=== PATIENT | female | born 1995 | race Caucasian/White ===

== ENCOUNTER 2018-07-22 16:48 | Outpatient (CLI) | END 2018-07-22 18:13 | disposition home or self-care (01) ==

== ENCOUNTER 2018-07-24 08:27 | Outpatient (CLI) | END 2018-07-24 10:32 | disposition home or self-care (01) ==

== ENCOUNTER 2018-07-28 09:49 | Outpatient (CLI) | END 2018-07-28 11:32 | disposition home or self-care (01) ==

== ENCOUNTER 2018-08-10 09:34 | Inpatient (IN) | payer OTHER ==
[~2018-08-10] VITALS: Ht 152.4 cm; Wt 77.5 kg
[~2018-08-10 09:34] MED LIST: ALBU8.5H8 INH; PREN-93 PO
[2018-08-10 09:45] VITALS: Ht 152.4 cm; Wt 77.5 kg
--- NOTE | 2018-08-10 09:46 | TRIAGE ---
OB Triage Datetime Report Generated by CPN: 08/10/2018 09:45 Datetime: 08/10/2018 09:35 Assessment Type: Triage Maternal Assessment Level of Consciousness: Fully Conscious DTR's/Clonus: DTRs 2+; No Clonus Headache: Denies Blurred Vision: No Respiratory Effort: Unlabored; Regular Rhythm; Equal Expansion Breath Sounds, Left: Clear and Equal Breath Sounds, Right: Clear and Equal Nausea/Vomiting: Denies RUQ Epigastric Pain: Denies Lower Extremities Edema: None Degree: None Upper Extremities Edema: None Degree: None Facial Edema: None Fall Risk Assessment History of Falling: (0) No Secondary Diagnosis: (0) No Ambulatory Aid: (0) Bedrest/Nurse Assist IV Therapy: (0) No Gait: (0) Normal/Bedrest/Immobile Mental Status: (0) Oriented to Own Ability Fall Score: 0 Fall Risk Score Definition: No Risk: No action required Datetime: 08/10/2018 09:31 Time of Arrival: 08/10/2018 09:31 EGA: 40.0 Arrived By: Wheelchair Arrived From: Home Chief Complaint: R/O LABOR Movement: Present Contractions: Regular Time Contractions Began: 08/10/2018 05:00 Contractions: 5-10 Rupture of Membranes: Denies Vaginal Discharge: Denies Recent Sexual Intercouse: Denies Abdominal Trauma: Not Applicable Additional Patient Complaints: NONE Time Provider Notified: 08/10/2018 09:41 Provider Notified: DEWAYNE Initial Plan: MONITOR AND VE Datetime: 07/28/2018 11:24 Stage of : OB Triage Maternal Assessment Level of Consciousness: Fully Conscious Labor Evaluation Frequency: 2UC Monitor Mode: External Duration (sec)2399: 80-100 Quality: Mild Resting Tone [place]: Relaxed Heart Rate FHR Baseline Rate: 135 Monitor Mode: External US Variability: Moderate 6-25 bpm Accelerations: 15X15 Decelerations: None Category: Category I Pain Assessment Pain Scale: 0 Pain Goal: 3 Vaginal Exam Membrane Status: Intact Vaginal Bleeding: None Datetime: 07/28/2018 10:55 EGA: 38.1 Fall Score: 0 Fall Risk Score Definition: No Risk: No action required Datetime: 07/24/2018 08:33 Fall Score: 0 Fall Risk Score Definition: No Risk: No action required Datetime: 07/24/2018 08:31 EGA: 37.4 Datetime: 07/22/2018 17:09 Fall Score: 0 Fall Risk Score Definition: No Risk: No action required Datetime: 07/22/2018 17:08 EGA: 37.2
[2018-08-10] MEDS ORDERED: OXYTOCIN 30 UNITS/LR 500 ML IV SCH ×3 (11:00→13:00)
--- NOTE | 2018-08-10 11:27 | HP ---
Date/Time of Note Date/Time of Note DATE: 08/10/18 TIME: 11:25 OB - History Hx of Present Free Text/Dictation @40+wks GA : 1 Para: 0 Care: Good Care Ultrasounds: Normal mid trimester US Obstetrical Complications: None Past Family/Social History * Past Medical, Surgical, Family and Obstetric Histories reviewed from chart. OB Admission Exam Physical Exam Abdomen: WNL Cervical Dilatation: 3cm Effacement: 75% Station: -1 Heart Rate: 140's Accelerations: Accelerations Present Decelerations: No Decelerations Varibility: Moderate Contractions on Admission: 6-10 Minutes Apart OB Assessment/Plan Reason for admission: observation Other Assessment: PMH Denies PSH Denies Allergy NKDA Plan: Expectant Management HARSHA BUCHANAN M.D. Aug 10, 2018 11:27
[2018-08-10] MEDS: LACTATED RINGER'S 1,000 ML IV SCH ×2 (12:51→20:58)
[2018-08-10] MEDS ORDERED: MISOPROSTOL 200 MCG TAB PR PRN (13:00)
[2018-08-10] MEDS ORDERED: METHYLERGONOVINE 0.2 MG INJ IM PRN (13:00)
[2018-08-10] MEDS ORDERED: CARBOPROST 250 MCG INJ IM PRN (13:00)
[2018-08-10] MEDS ORDERED: OXYTOCIN 30 UNITS/LR 500 ML IV PRN (13:00)
[2018-08-10] MEDS ORDERED: BUTORPHANOL 2 MG INJ IV PRN (13:00)
[2018-08-10] MEDS ORDERED: LIDOCAINE 1% (MPF) 30 ML INJ INJ PRN (13:00)
[2018-08-10] MEDS ORDERED: FENTAnyl 2MCG/ML-ROPIV 0.2% 100 ML ONE (13:01)
--- NOTE | 2018-08-10 13:08 | PREAC ---
Date/Time of Note Date/Time of Note DATE: 08/10/18 TIME: 13:07 Anesthesia Eval and Record Evaluation Time Pre-Procedure Interview DATE: 08/10/18 TIME: 13:07 Age 23 Sex female NPO: 8 hrs Preoperative diagnosis Labor Pain Planned procedure Labor Epidural Past Medical History Past Medical History: Includes : : (1), Para: (0), Gestational age: (40) Surgery & Anesthesia Issues No known issue Meds Anticoagulation: No Beta Jael within 24 hr: No Reason Beta Jael not given: Pt. not on B-Jael Reported Medications Albuterol Sulfate* (Proair HFA*) 8.5 Gm Hfa.aer.ad, 2 PUFF INH Q4 PRN for SHORTNESS OF BREATH, #1 INHALER 07/28/18 Vit No.124/Iron/FA ( Vitamin Tablet) 1 Each Tablet, 1 EACH PO DAILY, TAB 07/22/18 Current Medications Oxytocin/Lactated Ringer's 500 ml @ 0 mls/hr FOR AUGMENTATION IV ; Start 08/10/18 at 11:00 Lactated Ringer's 1,000 ml @ 125 mls/hr Q8H IV Last administered on 08/10/18at 12:51; Admin Dose 125 MLS/HR; Start 08/10/18 at 12:45 Butorphanol Tartrate (Stadol) 2 mg Q2H PRN IV PAIN; Start 08/10/18 at 13:00 Lidocaine (Xylocaine 1% (Mpf)) 30 ml ONCE PRN INJ EPISIOTOMY; Start 08/10/18 at 13:00 Oxytocin/Lactated Ringer's 500 ml @ 500 mls/hr ONCE POST IV ; Start 08/10/18 at 13:00 Oxytocin/Lactated Ringer's 500 ml @ 125 mls/hr POST IV ; Start 08/10/18 at 13:00 Oxytocin/Lactated Ringer's 500 ml @ 0 mls/hr ONCE PRN IV VAGINAL BLEEDING; Start 08/10/18 at 13:00 Methylergonovine Maleate (Methergine) 0.2 mg ONCE PRN IM VAGINAL BLEEDING; St art 08/10/18 at 13:00 Carboprost Tromethamine (Hemabate) 250 mcg ONCE PRN IM VAGINAL BLEEDING; Start 08/10/18 at 13:00 Misoprostol (Cytotec) 1,000 mcg ONCE PRN ND VAGINAL BLEEDING; Start 08/10/18 at 13:00 Meds reviewed: Yes Allergies Coded Allergies: No Known Allergy (Unverified , 08/10/18) Allergies Reviewed: Yes Labs/Studies Labs Reviewed: Reviewed by anesthesiologist test: Positive Studies: ECG (n/a), CXR (n/a) Pre-procedure Exam Airway: Adequate mouth opening, Adequate thyromental dist Mallampati: Mallampati II Teeth: Normal Lung: Normal Heart: Normal ASA Physical Status ASA physical status: 2 Emergency: None Planned Anesthetic Neuraxial: Epidural Planned Pain Management Epidural Pre-operative Attestations Prior to commencing anesthesia and surgery, the patient was re-evaluated, there was verification of: *The patient's identity *The results of appropriate recent lab work and preoperative vital signs *The above evaluation not changing prior to induction *Anesthetic plan, risk benefits, alternative and complications discussed with patient/family; questions answered; patient/family understands, accepts and wishes to proceed. MARTHA CHRISTIAN MD Aug 10, 2018 13:08
--- NOTE | 2018-08-10 13:10 | PAC ---
Date/Time of Note Date/Time of Note DATE: 08/10/18 TIME: 13:10 Post-Anesthesia Notes Post-Anesthesia Note Last documented vital signs T: 98.1 Activity: WNL Respiratory function: WNL Cardiovascular function: WNL Mental status: Baseline Pain reasonably controlled: Yes Hydration appropriate: Yes Nausea/Vomiting absent: Yes MARTHA CHRISTIAN MD Aug 10, 2018 13:10
[2018-08-10] MEDS ORDERED: NALOXONE (0.4 MG/ML) INJ IV PRN (13:30)
[2018-08-10] MEDS ORDERED: ALBUTEROL HFA 8 GM INHALER INH PRN (13:30)
[2018-08-10] MEDS: FENTAnyl 2MCG/ML-ROPIV 0.2% 100 ML BAG EPI SCH ×2 (20:46→20:47)
[2018-08-11] MEDS ORDERED: MINERAL OIL LIGHT 10 ML VIAL TOP STA (02:27)
--- NOTE | 2018-08-11 03:14 | LDN ---
Date/Time of Note Date/Time of Note DATE: 08/11/18 TIME: 03:11 Delivery Summary from OA from OP Weeks of Gestation 40w1d Placenta Delivered: Spontaneously Meconium: Thick Episiotomy: Yes Indication for episiotomy exp laceration Perineal laceration: 0 Laceration repair: 00ch gut Anesthesia type: Local Estimated blood loss: 300 Sponge & Needle done & correct: Yes All needle counts correct: Yes Any foreign bodies felt in the: No Infant Delivery Information Sex Sex: female Apgars 1 Minute: 8 5 Minute: 9 Suctioning Nose & mouth suctioned at britany: Yes Delee suction performed: Yes Umbilical Cord Umbilical cord with: 3 Vessels Cord presentations: no nuchal cord Cord Blood was obtained: Yes Mother & Baby Disposition Disposition Mom & Baby to Maternity; Good: Yes Mom transferred to: Other Baby to NICU: No () POLO GARNER MD Aug 11, 2018 03:14
[2018-08-11] MEDS ORDERED: IBUPROFEN 600 MG TAB PO PRN (04:00)
[2018-08-11] MEDS: LACTATED RINGER'S 1,000 ML IV SCH (04:45)
[2018-08-11 05:05] VITALS: BP 133/79; PULSE 94; RESP 20
[2018-08-11] MEDS ORDERED: LANOLIN HPA 1 PKT TOP PRN (06:00)
[2018-08-11] MEDS ORDERED: ALBUTEROL HFA 8 GM INHALER INH PRN (06:00)
[2018-08-11] MEDS ORDERED: OXYTOCIN 30 UNITS/LR 500 ML IV PRN (06:00)
[2018-08-11] MEDS ORDERED: CARBOPROST 250 MCG INJ IM PRN (06:00)
[2018-08-11] MEDS ORDERED: MISOPROSTOL 200 MCG TAB PR PRN (06:00)
[2018-08-11] MEDS ORDERED: OXYCODONE/ASPIRIN (4.88/325) TAB PO PRN (06:00)
[2018-08-11] MEDS ORDERED: ZOLPIDEM 5 MG TAB PO PRN (06:00)
[2018-08-11] MEDS ORDERED: METHYLERGONOVINE 0.2 MG INJ IM PRN (06:00)
[2018-08-11 06:01] VITALS: BP 130/77; PULSE 82; RESP 17
[2018-08-11] MEDS: WITCH HAZEL/GLYCERIN PAD PR PRN (06:04)
[2018-08-11] MEDS: BENZOCAINE 20% 56 ML SPRAY TOP PRN (06:04)
[2018-08-11] MEDS: IBUPROFEN 600 MG TAB PO SCH ×3 (06:04→17:58)
[2018-08-11] MEDS: SENNA/DOCUSATE NA (8.6MG/50MG) TAB PO SCH ×2 (08:08→21:30)
[2018-08-11] MEDS: PRENATAL VITAMIN PO SCH (08:08)
--- NOTE | 2018-08-11 09:24 | QN ---
Documentation Comment PPD#1 is stable afebrile no VB +BM+Adequate urine VS stable Gen NAD Abd soft NT ND Genitalia No blood at perineum --->Discharge Home tomorrow HARSHA BUCHANAN M.D. Aug 11, 2018 09:24
[2018-08-11 12:00] VITALS: BP 105/60; PULSE 85; RESP 18
[2018-08-11 15:52] VITALS: BP 119/74; PULSE 92; RESP 18
[2018-08-11 19:30] VITALS: BP 140/79; PULSE 95; RESP 16
[2018-08-12] MEDS: WITCH HAZEL/GLYCERIN PAD PR PRN (00:50)
[2018-08-12] MEDS: IBUPROFEN 600 MG TAB PO SCH ×4 (00:50→17:28)
[2018-08-12 04:27] VITALS: BP 109/56; PULSE 81; RESP 16
[2018-08-12] MEDS: SENNA/DOCUSATE NA (8.6MG/50MG) TAB PO SCH ×2 (08:59→20:41)
[2018-08-12] MEDS: PRENATAL VITAMIN PO SCH (08:59)
[2018-08-12 10:47] VITALS: BP 112/84; PULSE 84; RESP 18
[2018-08-12 16:16] VITALS: BP 115/64; PULSE 75; RESP 18
--- NOTE | 2018-08-12 18:38 | QN ---
Documentation Comment no c/o vss afebrile fundus firm\ lochia min stable POLO GARNER MD Aug 12, 2018 18:38
[2018-08-12 20:15] VITALS: BP 125/67; PULSE 88; RESP 16
[2018-08-12] MEDS: OXYCODONE/ASPIRIN (4.88/325) TAB PO PRN (20:41)
[2018-08-13] MEDS: IBUPROFEN 600 MG TAB PO SCH ×4 (00:09→17:19)
[2018-08-13 04:25] VITALS: BP 113/59; PULSE 77; RESP 17
[2018-08-13 07:56] VITALS: BP 100/55; PULSE 84; RESP 18
[2018-08-13] MEDS: SENNA/DOCUSATE NA (8.6MG/50MG) TAB PO SCH (08:33)
[2018-08-13] MEDS: PRENATAL VITAMIN PO SCH (08:33)
[2018-08-13] MEDS ORDERED: DIPHTH/TET/ACEL PERTUSS (ADULT) 0.5 ML VIAL IM* ONE (09:00)
[2018-08-13] MEDS: OXYCODONE/ASPIRIN (4.88/325) TAB PO PRN (11:02)
[2018-08-13] MEDS: BENZOCAINE 20% 56 ML SPRAY TOP PRN (11:06)
[2018-08-13] MEDS: WITCH HAZEL/GLYCERIN PAD PR PRN (11:06)
[2018-08-13 15:48] VITALS: BP 110/68; PULSE 78; RESP 18
--- NOTE | 2018-08-13 16:44 | DS ---
Date/Time of Note Date/Time of Note DATE: 08/13/18 TIME: 16:43 Obstetrical Discharge Record Final Diagnosis Final Diagnosis: Term delivered Vaginal Delivery Obstetrical Delivery: Spontaneous Complications Augmentation: No Induction: No Rupture of Membranes: No Condition on Discharge Physical Assessment Last Vitals: vss afebrile Voiding: Yes Bowel Movement: Yes Breast: Soft, non-tender Fundus: Firm Abdomen and Incision: n/a Episiotomy: n/a Calf Tenderness: No Patient Condition: Stable POLO GARNER MD Aug 13, 2018 16:44
--- NOTE | 2018-08-13 16:46 | PD.PPDC ---
[employer] DEVELOPMENT MANAGER Discharge Instruction Diagnosis [id number] Final Diagnosis: Siaax9s s/p Condition [id number] Patient Condition: Gsadc0z Stable Diet [id number] Diet: Fwlkb9c Resume Regular Diet Activity/Restrictions [id number] Activity: [id number] May Shower Esxxr6Se Restrictions: Wscol3x No Lifting No Sexual Activity Nothing in the Vagina No [place] No Tampons, douche Follow-up Follow-up with Physician: 2, Week/Weeks Return to clinic for [id number] [employer]PER[employer]OR Instructions: Cmcle0s Fever greater than 101 Chills Worsening abdominal pain Excessive Vaginal Bleeding More than 2 pads per hour Unable to tolerate diet [id number] OB Instructions: Naxex0k Breast Tenderness Depression Blurried Vision Headache POLO GARNER MD Aug 13, 2018 16:46
== END 2018-08-13 19:15 | disposition home or self-care (01) | DRG 807 ==
LOC: L-D 09:34 → OBT 09:34 → L-D 09:41 → PP1 08-11 05:14
PROVIDERS: ADMIT Obstetrics & Gynecology; ATTEND Obstetrics & Gynecology
PROC: 10E0XZZ Delivery of Products of Conception, External Approach (ICD-10-PCS; principal; 2018-08-11)
PROC: 0W8NXZZ Division of Female Perineum, External Approach (ICD-10-PCS; 2018-08-11)
DX: O77.0 Labor and delivery complicated by meconium in amniotic fluid (principal); Z37.0 Single live birth; Z3A.40 40 weeks gestation of pregnancy
CPT/HCPCS: 62319; 76815; 85025; 85610; 85730; 86592; 86850; 86900; 86901; 99464; G0463; J2590; J3010; J7120